=== PATIENT | female | born 1980 | race Caucasian/White ===

== ENCOUNTER 2024-01-11 06:08 | Day surgery (SDC) | payer OTHER, SELFPAY ==
[2024-01-11] VITALS (33 sets, daily range): BP systolic 69–126; BP diastolic 31–90; BMI 22.9
[2024-01-11] MEDS: TYLENOL 1000 MG PO ×3 (06:32→23:33)
[2024-01-11] MEDS: CELEBREX 200 MG PO (06:32)
[2024-01-11] MEDS: SKELAXIN 800 MG PO ×2 (06:32→21:31)
[2024-01-11] MEDS: LYRICA 150 MG PO (06:33)
[2024-01-11] MEDS: DILAUDID 0.5 MG IV ×2 (09:37→09:54)
--- NOTE | 2024-01-11 09:49 | SUR.PHASEI ---
TT to Dr Parr, Discussed pain management for patient as patient takes Suboxone. Patient in severe pain, placed on Co2 monitoring. Apnec spells. Gabriel Gautam RN BSN.
--- NOTE | 2024-01-11 10:21 | SUR.PHASEI ---
Patient hypotensive , Anesthesia contacted, fluids opened , head Lowered. Gabriel evangelista RN BSN.
[2024-01-11] MEDS: OFIRMEV 100 IV (10:34)
--- NOTE | 2024-01-11 10:34 | SUR.PHASEI ---
Anesthesia here to see patient BP treated with vasopressor, apneic spells discussed. higher level of care suggested. Asked to hold patient in PACU. Gabriel Gautam RN BSN.
--- NOTE | 2024-01-11 11:20 | SUR.PHASEI ---
Apneic spells continue but not as frequent. BP 89/61. Neuro checks wnl. will continue to monitor in PACU. Family sent to [address] [place] [address] waiting room. Gabriel Gautam RN BSN.
--- NOTE | 2024-01-11 11:39 | SUR.PHASEI ---
Apnea continue's patient constantly stimulated to breath. alarm count 85. Will continue to monitor in PACU. Gabriel toro RN BSN.
--- NOTE | 2024-01-11 11:47 | SUR.PHASEI ---
Spouse Marcellus contacted to give update. Gabriel Gautam RN BSN.
--- NOTE | 2024-01-11 12:01 | SUR.PHASEI ---
Patient seen by anesthesia, discussed higher level of care. Gabriel Gautam RN BSN.
--- NOTE | 2024-01-11 12:46 | SUR.PHASEI ---
Anesthesia and surgeon requesting IMU for patient, varnishing unit tool setter informed. Apnea continues but not as frequent. Gabriel Gautam RN BSN.
[2024-01-11] MEDS: NORMOSOL-R/PLASMALYTE-A 1000 IV (13:20)
--- NOTE | 2024-01-11 13:44 | TRANSFER ---
Patient transferred to IMU, telephone and bedide report to Kimmy. Discussed need for Co2 and pulse ox monitoring. Patient awake on arrival to IMU. Dressing checked. Gabriel Gautam Rn BSN
--- NOTE | 2024-01-11 13:55 | HPS.HSE ---
Addendum entered and electronically signed by Gaston Gaston MD 01/11/24 14:54:
I saw and examined the patient.
The CASING CREW or PA's note was reviewed and I agree with the note.
Comment:
43F�Current smoker�HX s/p�substance abuse maintain on Suboxone BID s/p��C5-C7 ACDF (Dr. Martinez). PACU�complicated by periods of apnea and hypotension. Received�2 doses of IV Dilaudid 0.5 for post op 12/07 pain�and Tylenol. Low�BP treated with IVF bolus
and Vasopressor by anesthesia. Midodrine is initiated by Ortho CASING CREW. patient is awake alert and appropriate.�Request TF to Hospitalist service- accepted� for observation and close monitoring @�IMU for POx and BP. Obs IMU.�
Original Note:
Family Physician
-
Family Physician: NOT KNOW UNKNOWN - PT DOES
Chief Complaint
-
Apnea and Hypotension Post-Op
History of Present Illness
Patient is a 43 y/o female past medical history of substance abuse sober since 2006 on Suboxone who underwent C5-C7 Cervical Discectomy and Fusion today. Will in PACU she developed hypotension and periods of apnea following anesthesia and multiple
doses of IV Dilaudid. Patient seen in IMU post-op. At this time patient is awake and alert, and blood pressure has improved. She is complaining about persistent neck pain.
Medical History
Past Medical History
Past Medical History: Reports Other
Additional Past Medical History:
Substance Abuse
Past Surgical History: Reports Other
Additional Past Surgical History:
Tonsillectomy
Sinus Surgery
Cholecystectomy
Carpal Tunnel Release
C5-C7 Cervical Discectomy and Fusion
Social History
Tobacco: Smoker (One pack every few days)
Alcohol: None
Drug: Former User
Family History
Family History: Not pertinent
Allergies / Home Medications
Allergies reflects when Allergies were last updated in [employer].
Home Medications with original date entered in [employer]
Allergy/Medication List:
Allergies
Allergy/AdvReac Type Severity Reaction Status Date / Time
No Known Allergies Allergy Unverified 01/11/24 06:08
Home Medications
buprenorphine 8 mg-naloxone 2 mg sublingual film (Suboxone) 0.5 film buccal BID 12/29/23
carisoprodol 250 mg tablet 250 mg PO HS PRN pain/muscle spasm 12/29/23
gabapentin 300 mg capsule 300 mg PO TID PRN pain 12/29/23
ibuprofen 600 mg tablet 600 mg PO Q6H PRN pain 12/29/23
meloxicam 15 mg tablet 15 mg PO DAILY 12/29/23
norethindrone (contraceptive) 0.35 mg tablet (Jencycla) 0.35 mg PO DAILY 12/29/23
Review of Systems
-
A 12 point ROS was completed and negative except as noted: Yes
Respiratory: Denies Cough or Trouble Breathing
Cardiac: Denies Chest Pain or Palpitations
Musculoskeletal: Reports See HPI
Physical Exam
Vital Signs
Vital Signs
Temp Pulse Resp BP Pulse Ox
97.9 F 88 19 126/71 100
01/11/24 13:15 01/11/24 13:30 01/11/24 13:30 01/11/24 13:30 01/11/24 13:30
Physical Exam
General: Well Developed, No Apparent Distress and Conversant
HEENT: Anicteric, Moist mucous membranes, Oxygen (Nasal Cannula) and Other (Soft neck brace in place)
Respiratory: Clear and Non Labored Respirations
Cardiac: S1/S2 and Regular Rhythm
GI: Soft and Non Tender
Rectal: Deferred by Provider
Musculoskeletal: No Clubbing, No Cyanosis and No Edema
Skin: Warm and Dry
Neuro: Awake, Alert, Oriented and Nonfocal/grossly intact
Psych: Calm
Data Reviewed
-
Lab Data: Labs Reviewed by me
Impression/Plan
-
Transient Hypotension and Periods of Apnea
-Both have improved at this time
-Likely related to anesthesia and multiple doses of IV Dilaudid in PACU
-Monitor in IMU
Substance Abuse History
-Resume Suboxone
-Continue PO Dilaudid doses as recommended by pharmacy
C5-C7 Anterior Cervical Discectomy and Fusion
-Care as per Orthopedics
Tobacco Use Disorder
-Encourage smoking cessation
-Offered Nicotine patch which patient declined - Reviewed with patient to inform staff if she would like one at a later time
DVT proph: SCDs
Code Status: Full Code
[2024-01-11] MEDS: DILAUDID 6 MG PO (14:04)
[2024-01-11] MEDS: SUBUTEX 4 MG SL (15:19)
[2024-01-11] MEDS: ANCEF 5 IV ×2 (15:19→21:31)
[2024-01-11] MEDS: NEURONTIN 300 MG PO ×2 (15:19→21:18)
--- NOTE | 2024-01-11 15:19 | W.PN.ORTHO ---
Today's Communication / Plan
-
Monitor in IMU.
Work w/ PT and OT as able.
D/c when clinically stable.
Assessment
.
Distal Motor Intact: Yes
Dressing:
Clean, dry and intact.
Assessment:
Cervical stenosis s/p C5-C7 ACDF w/ Martinez 01/11/24
DVT prophylaxis - b/l SCDs/TEDs
Apnea and hypotension post-op, likely 2* GA and IV Dilaudid x2
- For apnea: monitor on continuous pulse ox. IS. Minimize opioids as able.
- For hypotension: received IVF bolus and vasopressor per anesthesia. Continue IVF and encourage oral hydration. Midodrine TID w/ BP parameters. Again, minimize opioids as able.
- Transfer to hospitalist service given higher level of care. Appreciate their help
H/o substance abuse, on Suboxone - spoke to Dr. Danielson, pt's addiction medicine specialist. He is deferring pain mgmt in the post-op period
- Talked to pharmacy 01/09. Can continue current Suboxone dose with Dilaudid as needed. If OK per hospitalist service, we are OK w/ resuming this medication. Last dose was 01/09 at noon
Current tobacco abuse - smoking cessation encouraged
- Nicoderm patch ordered prn
Endometriosis
Eczema
Plan
.
Surgery / Date: C5-C7 ACDF w/ [facility] 01/11/24
DVT Prophylaxis: Other (b/l SCDs/TEDs)
Activity:
Out of bed.
PT/OT
Discharge Plan: Home
Subjective
.
.:
Patient examined resting in bed.
Reporting incisional pain; however, was recently medicated w/ PO Dilaudid 6 mg.
Pt experienced periods of apnea and hypotension in PACU likely 2* GA, IV Dilaudid.
Vital Signs and Labs
.
Vital Signs and Labs:
Temp Pulse Resp BP Pulse Ox
98.7 F 63 16 126/90 100
01/11/24 06:15 01/11/24 06:15 01/11/24 06:15 01/11/24 06:15 01/11/24 06:15
Physical Exam
-
HEENT: No pallor, cyanosis, or jaundice. Throat clear.
NECK: Supple. No JVD.
RESPIRATORY: Lungs clear to auscultation.
CVS: S1, S2 normal. RRR.
ABDOMEN: Soft, non-tender. No distension.
EXTREMITIES: Able to wiggle fingers b/l. Good general labor forklift operator b/l. Strength equal, no calf pain with palpation/dorsiflexion. Calves soft.
PRESS OPERATOR: AOx3. No focal deficits. vending technician grossly intact
--- NOTE | 2024-01-11 16:04 | PTCARENOTE ---
Patient to room 3347 from PACU. Pt upgraded to IMU for apnea and hypotension. On arrival, patient was alert, awake and BP 120/70. Pt reports pain is 10/10 to the back of her neck. Pt asking for pain medication. RADHA Mcarthur was at bedside
to see patient. She advised patient to have someone bring in her Suboxone to help with her pain. Pt medicated with Dilaudid PO per APR. Pain still 10/10. Pt ordered Subutex and administered per APR. Pt reports the numbness and tingling in her arms
is gone. Pt's anterior neck dressing is CDI. Assessment, care and VS as charted.
[2024-01-11] MEDS: SENOKOT 17.2 MG PO (21:18)
[2024-01-11] MEDS: COLACE 100 MG PO (21:18)
[2024-01-11] MEDS: NON-FORMULARY ITEM 0.5 FILM BUCCAL (23:33)
[2024-01-12] VITALS: BP 105/66
[2024-01-12 02:00] VITALS: BP 105/61
[2024-01-12 04:00] VITALS: BP 105/67
[2024-01-12 05:49] LABS: Hematocrit 32.9 % (37.0-47.0); Hemoglobin 11.4 g/dL (12.0-16.0)
[2024-01-12 06:00] VITALS: BP 112/70
[2024-01-12] MEDS: TYLENOL PO ×2 (06:06→12:08)
[2024-01-12 06:12] LABS: Blood Urea Nitrogen 11 mg/dl (7-17); Calcium 8.4 mg/dl (8.4-10.2); Carbon Dioxide 24 mmol/L (22-30); Chloride 107 mmol/L (98-107); Estimated Creatinine Clearance 99 ml/min; Glucose 126 mg/dl (70-99); Sodium 141 mmol/L (135-145); eGFR > 60.00
--- NOTE | 2024-01-12 06:23 | PTCARENOTE ---
Continuous Sp02 monitoring in place overnight, no acute events. 96-99% on room air. No apneic episodes. NSR on tele. Q4 hour neuro checks unchanged. Denies numbness/tingling to upper extremities. Denies nausea/vomiting. BP WNL. Pain controlled 06/07
to 07/07. Provided patient's own Suboxone as ordered per the MAR. Up ad truong to BR with SBA. C-spine precaution maintained. Soft c-collar on. Surgical dressing intact, no drainage. SCDs on. Call farrell and tray table within reach. Pt calls appropriately.
--- NOTE | 2024-01-12 07:39 | W.PN.HOSP.TC ---
Today's Communication/Plan
-
discharge
Assessment / Plan
Assessment / Plan
Physical Exam
General: Well Developed, No Apparent Distress and Conversant
HEENT: Anicteric, Moist mucous membranes, Soft neck brace in place
Respiratory: Clear and Non Labored Respirations, stable respiratory status on room air
Cardiac: S1/S2 and Regular Rhythm
GI: Soft and Non Tender
Musculoskeletal: No Clubbing, No Cyanosis and No Edema
Skin: Warm and Dry
Neuro: Awake, Alert, Oriented and Nonfocal/grossly intact
Psych: Calm
43F past medical history of substance abuse sober since 2006 on Suboxone underwent C5-C7 Cervical Discectomy and Fusion post-op complicated with hypotension and periods of apnea following anesthesia and multiple doses of IV Dilaudid. Patient since
improved by postop day 1, BP and respiratory status stable on room air.
Transient Hypotension and Periods of Apnea
-Likely related to anesthesia and multiple doses of IV Dilaudid in PACU
-Since resolved
Substance Abuse History
-Resumed Suboxone
-Continue prn PO Dilaudid
C5-C7 Anterior Cervical Discectomy and Fusion
-Orthopedics eval appreciated
Tobacco Use Disorder
-Encouraged smoking cessation, patient verbalized willingness to comply with recommendation and her awareness of complication wound healing with further tobacco use
-declined Nicotine Supplementation.
PT/OT appreciated no needs
DVT proph: SCDs
Code Status: Full Code
Medically stable for discharge home with outpatient follow up recommendation.
Total Time Preparing Discharge ___50____ minutes including examination of the patient, summary of the hospital stay, instructions for continuing care to all relevant caregivers; and preparation of discharge records, prescriptions, and referral
forms if necessary.
Anticipated Discharge: Today
Subjective/Interval History
-
Date of Service: January 12, 2024
Seen and examined at bedside in no acute distress sitting up comfortably in bed. Overall reports feeling well, significant improvement in symptoms. Denies new acute issues at this time. Pain well controlled with current pain regimen. Eager to
go home.
Objective Data
-
Labs:
Laboratory Results
01/12/24 01/12/24
05:17 05:18
Hgb 11.4 L
Hct 32.9 L
Sodium 141
Potassium 4.0
Chloride 107
Carbon Dioxide 24
BUN 11
Creatinine 0.5 L
Glucose 126 H
Calcium 8.4
Vital Signs:
Vital Signs
Temp Pulse Resp BP Pulse Ox
98.2 F 76 11 112/70 97
01/12/24 07:23 01/12/24 06:15 01/12/24 06:15 01/12/24 06:00 01/12/24 06:15
I&O
01/11/24 01/12/24 01/13/24
06:59 06:59 06:59
Intake Total 1653 / 1653
Balance 1653 / 1653
[2024-01-12] MEDS: SENOKOT 17.2 MG PO (07:53)
[2024-01-12] MEDS: COLACE 100 MG PO (07:54)
[2024-01-12] MEDS: DILAUDID 6 MG PO ×2 (07:55→12:17)
[2024-01-12] MEDS: NEURONTIN 300 MG PO ×2 (07:56→15:04)
--- NOTE | 2024-01-12 07:59 | W.PN.SP ---
Today's Communication / Plan
-
S/P ACDF
in micu for apnea s/p narcs
CAn D/c today
Subjective / Objective
Subjective Data
PT doing well
Arms better
No trouble breathing
Objective Data
Vital Signs
Temp Pulse Resp BP Pulse Ox
98.2 F 76 11 112/70 97
01/12/24 07:23 01/12/24 06:15 01/12/24 06:15 01/12/24 06:00 01/12/24 06:15
Intake and Output
01/11/24 01/12/24 01/13/24
06:59 06:59 06:59
Intake Total 1653 / 1653
Balance 1653 / 1653
Intake:
Oral fluids 603 / 603
IV fluids (Total) 1050 / 1050
Normosol-R/Plasmalyte-A 1,000 25 / 25
ml @ 100 mls/hr IV .Q10H DARLING Rx
#:[id number]
Ns 525 / 525
Other:
Number of approximated MODERATE 1
amounts of urine
Number of approximated LARGE 1
amounts of urine
Lab Data
01/12/24 05:18
01/12/24 05:17
Physical Exam
-
Strrmgth improved 07/02
[2024-01-12] MEDS: NON-FORMULARY ITEM 1 FILM BUCCAL (08:12)
--- NOTE | 2024-01-12 08:33 | W.PN.ORTHO ---
Today's Communication / Plan
-
OK for d/c from orthopedic perspective.
Await PT and OT recs.
D/c possible later today pending approval of hospitalist service.
Assessment
.
Distal Motor Intact: Yes
Dressing:
Clean, dry and intact.
Assessment:
Cervical stenosis s/p C5-C7 ACDF w/ Dr Martinez 01/11/24
- Continue to wear cervical collar at all times except when showering
- To work w/ PT and OT today
- No heavy lifting >10 lbs
- Will be on prophylactic Keflex 500 mg q6h x5 days upon d/c
- HOLD NSAIDs such as Meloxicam until OK to resume per surgeon
- Will f/u w/ Dr Martinez's office in 2 weeks. Appointment already scheduled per pt.
DVT prophylaxis - b/l SCDs/TEDs
Apnea and hypotension post-op, likely 2* GA and IV Dilaudid x2
- For apnea: monitor on continuous pulse ox. IS. Opioids minimized as able.
- For hypotension: received IVF bolus and vasopressor in PACU per anesthesia. IVF continued in IMU and encouraged oral hydration. Midodrine TID w/ BP parameters (not needed). Again, opioids minimized as able.
- Transferred to hospitalist service given higher level of care. Appreciate their help
- No further apnea or hypotensive episodes since yesterday.
H/o substance abuse, on Suboxone - spoke to Dr. Danielson, pt's addiction medicine specialist. He is deferring pain mgmt in the post-op period
- Talked to pharmacy 01/09. Continue current Suboxone dose with Dilaudid as needed. Suboxone resumed afternoon of surgery
- Tolerating Suboxone and current Dilaudid. Will defer Diluadid dosing for d/c to hospitalist service
Current tobacco abuse - smoking cessation encouraged
- Nicoderm patch ordered prn but not needed
Mild post-op anemia
Endometriosis
Eczema
Plan
.
Surgery / Date: C5-C7 ACDF w/ Dr Lópezu 01/11/24
DVT Prophylaxis: Other (b/l SCDs/TEDS)
Activity:
Out of bed.
PT/OT
Discharge Plan: Home
Subjective
.
.:
Patient resting comfortably in bed.
She 'feels much better' in comparison to yesterday.
Incisional pain overall well controlled.
Minor sore throat and dysphagia (not unexpected given procedure). Is tolerating food/liquids w/o reported issues.
AM labs WNL.
Eager for potential d/c today.
Vital Signs and Labs
.
Vital Signs and Labs:
Lab Results
01/12/24 05:18
01/12/24 05:17
Temp Pulse Resp BP Pulse Ox
98.2 F 76 11 128/84 97
01/12/24 07:23 01/12/24 06:15 01/12/24 06:15 01/12/24 07:59 01/12/24 06:15
Physical Exam
-
HEENT: No pallor, cyanosis, or jaundice. Throat clear.
NECK: Supple. + Cervical collar.
RESPIRATORY: Lungs clear to auscultation.
CVS: S1, S2 normal. RRR.�
ABDOMEN: Soft, non-tender. No distension.
EXTREMITIES: Strength equal, no calf pain with palpation/dorsiflexion. Calves soft.
DIE MAKER TRIM: AOx3. No focal deficits. drafter automotive design grossly intact
[2024-01-12 10:40] VITALS: BP 134/92; PULSE 80; O2SAT 99
[2024-01-12 10:42] VITALS: BP 134/92; PULSE 81; O2SAT 99
--- NOTE | 2024-01-12 11:32 | CM ---
Addendum entered by Tabby Soto RN 01/12/24 12:06:
OT Eval; no needs.
Original Note:
Patient who is s/p C5-C7 ACDF (anterior cervical discectomy and fusion) surgery. Room air. C-collar. Receiving Suboxone. PT Eval; No skilled PT needed.
Met with patient who resides with her and 2 children in a 2 story house with 4 BROWN, and full flight to second floor bedroom/bath.
The patient was independent in ADLs and ambulation.
She purchased a recliner for the first floor and may decide to sleep there for now rather than climb the stairs at home.
The patient has no DME or prior VN.
PCP - Gris GARCIA for [facility] [place]
Pharmacy - [facility]
Offered VN that MD ordered and patient declined, saying she doesn't feel it will be needed, and she will contact MD as needed instead.
The patient says she feels well today and she is hoping to go home. If discharged, her will provide transport home.
No CM d/c needs identified.
Plan home.
--- NOTE | 2024-01-12 13:53 | W.DCSUMMARY ---
Discharge Summary
Discharge Data
Date of Admission: 01/11/24
Date of Discharge: 01/13/24
-
Pending Results: No
Discharge Plan
-
Patient Disposition: Home (Routine Discharge)
Discharge Diagnosis/Procedures: Cervical stenosis status post C5-C7 Anterior Cervical Discectomy Fusion with Dr Martinez 01/11/24
Transient Hypotension and Periods of Apnea likely secondary to anesthesia and pain medications, since resolved
Tobacco Use
Condition: Good
Diet: Regular
Activity: As tolerated
Additional Activity: No heavy lifting >10 lbs.
Driving Restrictions: Not until seen by your Dr
Bathing Restrictions: OK to shower in 4 days
Others Tests: Discuss with your primary care provider in follow up possible benefits outpatient sleep study
Activity Restrictions/Additional Instructions:
Please follow up with primary care provider and pain specialist in 1 week of discharge and Orthopedic in 2 weeks of discharge.
Keflex has been prescribed for prophylaxis against infection, 5 days.
Tylenol has been ordered scheduled 1000 mg three times a day for post-op pain control, 7 days.
As needed Dilaudid has also been prescribed for post-op pain control, 5 day supply.
Please follow up with primary care provider and/or other healthcare provider, pain specialist, orthopedic, and/or other healthcare provider involved in your care for refills and/or further adjustment to your medication regimen as necessary.
Stand Alone Forms: Martinez Cervical D/C Inst.
Referrals:
Magdiel Martinez MD [Active] - in two weeks (If not already scheduled, call to make a follow-up appointment)
UNKNOWN - PT DOES,NOT KNOW [Family Provider] -
Additional Discharge Medication Instructions: HOLD NSAID use including Meloxicam and Ibuprofen post-surgery. DO NOT resume until discussed with surgeon at 2 week follow-up appointment.
Prescriptions:
New
cephalexin 500 mg capsule
500 mg PO Q6H Qty: 20 0RF
hydromorphone 2 mg Tablet
6 mg PO Q6HPRN PRN (Reason: severe pain) Qty: 60 0RF
Rx Instructions:
reduce to 4 mg (2 tabs) for moderate pain
acetaminophen [Tylenol Extra Strength] 500 mg Tablet
1,000 mg PO Q8 Qty: 42 0RF
Continued
gabapentin 300 mg Capsule
300 mg PO TID PRN (Reason: pain)
norethindrone (contraceptive) [Jencycla] 0.35 mg Tablet
0.35 mg PO DAILY
carisoprodol 250 mg Tablet
250 mg PO HS PRN (Reason: pain/muscle spasm)
buprenorphine-naloxone [Suboxone] 8-2 mg Film
0.5 film BUCCAL BID
Discontinued
meloxicam 15 mg Tablet
15 mg PO DAILY
ibuprofen 600 mg Tablet
600 mg PO Q6H PRN (Reason: pain)
Discharge Orders:
Discharge Patient (As Directed); Ordered 01/12/24
Ordered By: Kortney Guerrero
Discharge Date and Time
Discharge Date/Time: 01/12/24 15:43
Print Language: AZERI
[2024-01-12] MEDS: KEFLEX 500 MG PO (15:04)
== END 2024-01-12 15:43 | disposition home or self-care (01) ==
LOC: SDS 06:08
PROVIDERS: Physician Assistant; ATTENDING PHYSICIAN Internal Medicine; CONSULT PHYSICIAN Orthopaedic Surgery Orthopaedic Surgery of the Spine
DX: M48.02 Spinal stenosis, cervical region (principal)
CPT/HCPCS: 22551; 22552; 22554; 22853; 20930; 72020; 80048; 85014; 85018; 87070; 97162; 97165; C1713

== ENCOUNTER → 2024-03-02 13:23 | Outpatient (REF) | payer OTHER, SELFPAY | LOC: HWWDC 13:23 | PROVIDERS: ATTENDING PHYSICIAN Obstetrics & Gynecology; FAMILY PHYSICIAN Physician Assistant Medical | DX: Z12.31 Encounter for screening mammogram for malignant neoplasm of breast (principal) | CPT/HCPCS: 77063; 77067 ==

== ENCOUNTER → 2025-02-04 18:31 | Outpatient (REF) | payer BC, SELFPAY | LOC: PAVMRI 18:31 | PROVIDERS: FAMILY PHYSICIAN Family Medicine Adult Medicine | DX: Z98.1 Arthrodesis status (principal); M54.12 Radiculopathy, cervical region | CPT/HCPCS: 72141 ==